=== PATIENT | female | born 1995 | race American Indian/Alaskan Native ===

== ENCOUNTER 2017-06-08 17:29 | Emergency (ER) | payer MEDICAID ==
--- NOTE | 2017-06-08 17:33 | EDM.PDOC ---
ED HPI GENERAL MEDICAL PROBLEM - General Chief Complaint: Neuro Symptoms/Deficits Stated Complaint: RT SIDE OF FACE IS NUMB, [id number] Time Seen by Provider: 06/08/17 17:40 Source of Information: Reports: Patient, RN, RN Notes Reviewed - History of Present Illness INITIAL COMMENTS - FREE TEXT/NARRATIVE: Complaining of waking today with posterior and right sided headache. During the day the right face felt slightly tingly then developed right facial droop. speech is unaffected. She states the right eye will not fully close. Onset: Today Location: Reports: Head Quality: Reports: Ache Severity: Severe Improves with: Reports: None Worsens with: Reports: None Associated Symptoms: Reports: No Other Symptoms Headache Pain Score (Numeric/FACES): 4 - Related Data Allergies Allergy/AdvReac Type Severity Reaction Status Date / Time amoxicillin Allergy Hives Verified 06/08/17 17:45 Home Meds: Home Meds . [No Known Home Meds] 06/08/17 [History] ED ROS GENERAL - Review of Systems Review Of Systems: ROS reveals no pertinent complaints other than HPI. ED EXAM, NEURO - Physical Exam Exam: See Below Exam Limited By: No Limitations General Appearance: Alert, WD/WN, No Apparent Distress Eye Exam: Bilateral Eye: Normal Inspection Ears: Normal External Exam, Normal Canal, Hearing Grossly Normal, Normal TMs Nose: Normal Inspection, Normal Mucosa, No Blood Throat/Mouth: Normal Inspection Head Exam: Other (right facial droop involving right eye. ) Neck: Normal Inspection, Supple, Non-Tender, Full Range of Motion Respiratory/Chest: No Respiratory Distress, Lungs Clear, Normal Breath Sounds, No Accessory Muscle Use, Chest Non-Tender Cardiovascular: Normal Peripheral Pulses, Regular Rate, Rhythm, No Edema, No Gallop, No JVD, No Murmur, No Rub Neurological: Other (right face as per HEENT/otherwise normal. ) Back Exam: Normal Inspection, Full Range of Motion, NT Extremities: Normal Inspection, Normal Range of Motion, Non-Tender, No Pedal Edema, Normal Capillary Refill Psychiatric: Normal Affect, Normal Mood Skin Exam: Warm, Dry, Intact, Normal Color, No Rash Course - Vital Signs Last Recorded V/S: Last Vital Signs Temp 36.9 C 06/08/17 17:36 Pulse 91 06/08/17 17:36 Resp 12 06/08/17 17:36 BP 134/85 06/08/17 17:36 Pulse Ox 100 06/08/17 17:36 - Orders/Labs/Meds Labs: Laboratory Tests 06/08/17 06/08/17 06/08/17 Range/Units 17:43 17:43 17:57 WBC 12.6 H (5.0-10.0) 10^3/uL RBC 4.81 (4.2-5.4) 10^6/uL Hgb 13.2 (12.0-16.0) g/dL Hct 39.6 (37.0-47.0) % MCV 82.3 (80-100) fL MCH 27.4 (27.0-34.0) pg MCHC 33.3 (33.0-35.0) g/dL Plt Count 353 (150-450) 10^3/uL Neut % (Auto) 59.0 (42.2-75.2) % Lymph % (Auto) 29.0 (20.5-50.1) % Amelia % (Auto) 7.3 (2-8) % Eos % (Auto) 4.5 H (1.0-3.0) % Baso % (Auto) 0.2 (0.0-1.0) % Sodium (135-145) mmol/L Potassium (3.6-5.0) mmol/L Chloride (101-111) mmol/L Carbon Dioxide (21.0-31.0) mmol/L Anion Gap BUN (7-18) mg/dL Creatinine (0.6-1.3) mg/dL Est Cr Clr Drug Dosing mL/min Estimated GFR (MDRD) BUN/Creatinine Ratio Glucose (74-105) mg/dL Calcium (8.4-10.2) mg/dl Total Bilirubin (0.2-1.0) mg/dL AST (10-42) IU/L ALT (10-60) IU/L Alkaline Phosphatase (42-121) IU/L C-Reactive Protein (0.0-1.3) mg/dL Total Protein (6.7-8.2) g/dl Albumin (3.2-5.5) g/dl Globulin Albumin/Globulin Ratio Urine Color Yellow (YELLOW) Urine Appearance Slightly cloudy (CLEAR) Urine pH 6.0 (5.0-9.0) Ur Specific [place] 1.025 (1.005-1.030) Urine Protein Negative (NEGATIVE) Urine Glucose (UA) Negative (NEGATIVE) Urine Ketones Negative (NEGATIVE) Urine Occult Blood Negative (NEGATIVE) Urine Nitrite Negative (NEGATIVE) Urine Bilirubin Negative (NEGATIVE) Urine Urobilinogen 0.2 (0.2-1.0) mg/dL Ur Leukocyte Esterase Negative (NEGATIVE) Urine RBC 0-5 /HPF Urine WBC 0-5 (0-5/HPF) /HPF Ur Epithelial Cells Few /HPF Urine Bacteria Moderate H (0-FEW/HPF) /HPF Urine Mucus Rare /LPF Urine HCG, Qual Negative 06/08/17 06/08/17 Range/Units 17:57 17:57 WBC (5.0-10.0) 10^3/uL RBC (4.2-5.4) 10^6/uL Hgb (12.0-16.0) g/dL Hct (37.0-47.0) % MCV (80-100) fL MCH (27.0-34.0) pg MCHC (33.0-35.0) g/dL Plt Count (150-450) 10^3/uL Neut % (Auto) (42.2-75.2) % Lymph % (Auto) (20.5-50.1) % Amelia % (Auto) (2-8) % Eos % (Auto) (1.0-3.0) % Baso % (Auto) (0.0-1.0) % Sodium 138 (135-145) mmol/L Potassium 4.1 (3.6-5.0) mmol/L Chloride 102 (101-111) mmol/L Carbon Dioxide 25.0 (21.0-31.0) mmol/L Anion Gap 15.1 BUN 15 (7-18) mg/dL Creatinine 0.6 (0.6-1.3) mg/dL Est Cr Clr Drug Dosing 124.75 mL/min Estimated GFR (MDRD) > 60 BUN/Creatinine Ratio 25.00 Glucose 90 (74-105) mg/dL Calcium 9.6 (8.4-10.2) mg/dl Total Bilirubin 0.6 (0.2-1.0) mg/dL AST 33 (10-42) IU/L ALT 49 (10-60) IU/L Alkaline Phosphatase 60 (42-121) IU/L C-Reactive Protein 1.6 H (0.0-1.3) mg/dL Total Protein 8.1 (6.7-8.2) g/dl Albumin 4.5 (3.2-5.5) g/dl Globulin 3.6 Albumin/Globulin Ratio 1.25 Urine Color (YELLOW) Urine Appearance (CLEAR) Urine pH (5.0-9.0) Ur Specific [place] (1.005-1.030) Urine Protein (NEGATIVE) Urine Glucose (UA) (NEGATIVE) Urine Ketones (NEGATIVE) Urine Occult Blood (NEGATIVE) Urine Nitrite (NEGATIVE) Urine Bilirubin (NEGATIVE) Urine Urobilinogen (0.2-1.0) mg/dL Ur Leukocyte Esterase (NEGATIVE) Urine RBC /HPF Urine WBC (0-5/HPF) /HPF Ur Epithelial Cells /HPF Urine Bacteria (0-FEW/HPF) /HPF Urine Mucus /LPF Urine HCG, Qual - Radiology Interpretation Free Text/Narrative:: CT head: No acute intracranial process per rad report. Departure - Departure Time of Disposition: 18:28 Disposition: Home, Self-Care 01 Condition: Good Clinical Impression: Cruz's palsy - Discharge Information Instructions: Cruz Palsy Forms: ED Department Discharge Additional Instructions: Use Tylenol or Ibuprofen as needed for headache. Follow up in clinic in 1 week.
[2017-06-08 17:41] VITALS: BP 134/85
[2017-06-08 18:21] LABS: CHLORIDE,CL 102 mmol/L (101-111); SODIUM,NA 138 mmol/L (135-145)
== END 2017-06-08 18:45 | disposition home or self-care (01) ==
LOC: DL.ED 17:29
DX: G51.0 Bell's palsy (principal); Z88.1 Allergy status to other antibiotic agents
CPT/HCPCS: 36415; 70450; 80053; 81001; 81025; 85025; 86140; 99282; 99284

== ENCOUNTER 2018-02-24 05:33 | Emergency (ER) | payer MEDICAID ==
[2018-02-24] MEDS ORDERED: Lidocaine 1% with EPINEPHrine 1:100,000 30 ML MDV INJECT ONE (05:51)
[2018-02-24] MEDS ORDERED: Bacitracin Oint 1 GM U/D Packet TOP ONE (05:51)
[2018-02-24 05:54] VITALS: BP 127/89
--- NOTE | 2018-02-24 06:58 | EDM.PDOC ---
<Birgit Estrada - Last Filed: 02/24/18 07:11> ED HPI GENERAL MEDICAL PROBLEM - General Chief Complaint: Laceration Stated Complaint: GASH TO FOREHEAD [id number] Time Seen by Provider: 02/24/18 05:40 Source of Information: Reports: Patient History Limitations: Reports: No Limitations - History of Present Illness INITIAL COMMENTS - FREE TEXT/NARRATIVE: Skateboarding [place] park approximately 130 this am, fell forward onto forehead on concrete. Denies loss of consciousness, admits ETOH, Right ankle sore. Laceration to forehead and scalp. Location: Reports: Head, Face Quality: Reports: Ache, Throbbing Head Pain Score (Numeric/FACES): 4 - Related Data Allergies Allergy/AdvReac Type Severity Reaction Status Date / Time amoxicillin Allergy Hives Verified 06/08/17 17:45 Home Meds: Home Meds . [No Known Home Meds] 06/08/17 [History] Past Medical History - Past Health History Medical/Surgical History: Denies Medical/Surgical History Social & Family History - Tobacco Use Smoking Status *Q: Never Smoker Second Hand Smoke Exposure: Yes - Caffeine Use Caffeine Use: Reports: None - Alcohol Use Date of Last Drink: 02/23/18 - Recreational Drug Use Recreational Drug Use: No ED ROS GENERAL - Review of Systems Review Of Systems: See Below HEENT: Reports: Nose Pain (mild) Respiratory: Reports: No Symptoms Cardiovascular: Reports: No Symptoms GI/Abdominal: Reports: No Symptoms Musculoskeletal: Reports: No Symptoms Skin: Reports: Wound Neurological: Reports: Headache ED EXAM, SKIN/RASH Exam: See Below Exam Limited By: No Limitations General Appearance: Alert, Anxious Eye Exam: Bilateral Eye: EOMI, PERRL (3) Ears: Normal External Exam, Normal TMs Nose: Normal Inspection Throat/Mouth: No: Normal Lips (2mm superficial laceration to left corner) Head: Facial Swelling, Facial Tenderness, Other (contusion left temporal, laceration forehead parietal and occipital). No: Atraumatic Respiratory/Chest: No Respiratory Distress, Lungs Clear Cardiovascular: Normal Peripheral Pulses, Regular Rate, Rhythm Extremities: Normal Inspection, Normal Range of Motion Neurological: Alert, Oriented, Normal Cognition Skin: Warm, Dry, Wound/Incision Location, Skin: Head, Other Associated features: Tenderness ED SKIN PROCEDURES - Laceration/Wound Repair Middle Forehead Lac/Wound length In cm: 2.5 Appearance: Subcutaneous, Linear Distal NVT: Neuro & Vascular Intact Anesthetic Type: Local Local Anesthesia - Lidocaine (Xylocaine): 1% with EPI Local Anesthetic Volume: 3cc Skin Prep: Chlorhexidine (Hibiciens), Saline Exploration/Debridement/Repair: Wound Explored Closed with: Sutures Suture Size: other (5-0) # of Sutures: 7 Suture Type: Interrupted Suture Size: 4-0 # of Sutures: 3 Repaired with: Vicryl Sterile Dressing Applied: Nurse Tetanus Status Addressed: Yes Complications: No Mid-Anterior Head Lac/Wound length In cm: 1.5 Appearance: Stellate Distal NVT: Neuro & Vascular Intact Skin Prep: Chlorhexidine (Hibiciens), Saline Closed with: [place] (3) Tetanus Status Addressed: Yes Head Lac/Wound length In cm: 2 Appearance: Superficial Skin Prep: Chlorhexidine (Hibiciens), Saline Exploration/Debridement/Repair: Wound Explored Closed with: Damon Course - Vital Signs Last Recorded V/S: Last Vital Signs Temp 36.6 C 02/24/18 05:37 Pulse 89 02/24/18 05:37 Resp 18 02/24/18 05:37 BP 127/89 02/24/18 05:37 Pulse Ox 98 02/24/18 05:37 - Orders/Labs/Meds Labs: Laboratory Tests 02/24/18 Range/Units 06:46 Urine HCG, Qual Negative Meds: Medications Discontinued Medications Generic Name Dose Route Start Last Admin Trade Name Vadim PRN Reason Stop Dose Admin Bacitracin 1 dose 02/24/18 05:51 02/24/18 06:00 Bacitracin Oint 1 Gm TOP 02/24/18 05:52 1 dose ONETIME ONE Administration Lidocaine/Epinephrine 30 ml 02/24/18 05:51 02/24/18 05:59 Xylocaine 1% With Epinephrine 1:100,000 INJECT 02/24/18 05:52 1 ml ONETIME ONE Administration Departure - Departure Disposition: Home, Self-Care 01 Condition: Good Clinical Impression: Contusion, Broken skin - Discharge Information Instructions: Head Injury, Adult, Laceration Care, Adult, [id number], Stitches, [place], or Adhesive Wound Closure, [id number] Forms: ED Department Discharge Additional Instructions: keep areas clean and dry 24 hours then may shower sutures and damon out 7-10 days, call to make appointment monitor for infection, if increased swelling, redness or drainage follow up tylenol every 4 hours as needed for discomfort head injury instruction cold pack to forehead and face. antibiotic ointment to forehead laceration twice daily Based on CT results: Prescription for Keflex (500 mg) #30 to take 1 by mouth 3 times per day for 10 days due to sinusitis Care Plan Goals: Reviewed examination, treatment and CT results and I agree with treatment. An antibiotic was added due to CT demonstrating Sinusitis. <Uche Kumar - Last Filed: 02/24/18 07:51> Departure - Departure Time of Disposition: 07:55
== END 2018-02-24 08:01 | disposition home or self-care (01) ==
LOC: DL.ED 05:33
DX: S01.81XA Laceration without foreign body of other part of head, initial encounter (principal); S01.01XA Laceration without foreign body of scalp, initial encounter; Z88.1 Allergy status to other antibiotic agents; Z77.22 Contact with and (suspected) exposure to environmental tobacco smoke (acute) (chronic); W22.8XXA Striking against or struck by other objects, initial encounter; Y93.51 Activity, roller skating (inline) and skateboarding
CPT/HCPCS: 12001; 12002; 12011; 70450; 70486; 72125; 81025; 99284

== ENCOUNTER 2019-03-06 14:19 | Inpatient (IN) | payer MEDICAID ==
[2019-03-16] MEDS ORDERED: Acetaminophen 325 MG Tab PO PRN (06:00)
[2019-03-16] MEDS ORDERED: Sodium Chloride 0.9% 10 ML Syringe FLUSH PRN ×2 (08:00→22:02)
[2019-03-16] MEDS ORDERED: Misoprostol 25 MCG (1/4 of 100 MCG) Tab VAG PRN (08:00)
[2019-03-16] MEDS ORDERED: Misoprostol 50 MCG (1/2 of 100 MCG) Tab VAG PRN (08:52)
[2019-03-16] MEDS: Lactated Ringers 1,000 ML IV SCH ×3 (13:26→17:59)
[2019-03-16] MEDS: Oxytocin/Normal Saline 30 UNIT/500 ML BAG IV SCH ×2 (13:26→23:22)
--- NOTE | 2019-03-16 14:40 | HP ---
CHIEF COMPLAINT: Induction of labor. HISTORY OF PRESENT ILLNESS: The patient is a 23-year-old, 1, para 0 female, presenting at 41 weeks 2 days' gestation for induction of labor. The patient reports no concerns. The patient reports active movement. The patient denies any contractions, vaginal bleeding, vaginal discharge, or leakage of fluid. The patient does report new-onset lower extremity swelling within the last 3 weeks bilaterally. The patient denies any lower extremity pain or calf tenderness. The patient has no other concerns. PAST MEDICAL HISTORY: 1. The patient endorses positive UDS of THC on 08/09/2018. 2. Anemia of . 3. HSIL with colposcopy in early . 4. History of GERD in , treated with ranitidine. 5. Tobacco use in early , has since quit. 6. Eczema. PAST SURGICAL HISTORY: Tonsillectomy with adenoidectomy as a small child, no current complications. FAMILY HISTORY: History of diabetes and hypertension on both sides of the family. The patient's maternal grandfather has renal failure, undergoing dialysis. SOCIAL HISTORY: The patient resides in [place] with maternal grandfather and 2 younger brothers, age 17 and 19. The patient works at [employer] in [place], [place]. The father of baby is Ezio Magdaleno. He is not involved. Father of the baby is noted to have a penicillin allergy, but has no known other medical conditions. Does suffer from alcohol abuse. MEDICATIONS IN : 1. vitamin. 2. Ranitidine. 3. Iron supplementation 325 mg once daily. ALLERGIES: Amoxicillin. REVIEW OF SYSTEMS: Significant review of systems noted in HPI. Denies fever, chills, headache, blurred vision, chest pain, shortness of breath, abdominal pain, or new rashes. OBJECTIVE: Vital Signs: Temperature 99.1, HR 90 bpm, BP 108/61, RR 16 breaths per minute. General: Alert, active, in no acute distress. HEENT: Grossly normal. Pulmonary: Lungs are clear to auscultation bilaterally. No increased work of breathing. Cardiovascular: Regular rate and rhythm. No murmurs noted. Abdomen: Soft, nontender, gravid uterus palpated 22 cm above umbilicus. Extremities: Moderate lower extremity swelling bilaterally. No pitting noted. No tenderness to calf palpation bilaterally. Neurologic: Grossly normal. Cervical: Cervix was noted to be 5 cm dilated, 80% effaced, -2 station, very posterior. LABORATORY DATA: Recent lab results: WBC 14.2, RBC 4.34, hemoglobin 11.9, hematocrit 35.7, platelet count 340. Toxicology: Urine opiate screen positive. Urine methamphetamine screen positive, all other results negative including marijuana/THC. Confirmatory test pending. ASSESSMENT/PLAN: The patient is a 23-year-old, G1, P0 female, presenting at 41 weeks 2 days' gestation for induction of labor with Cytotec. Cytotec was placed around 9 a.m. and the patient is doing well. Anticipating routine progression of labor. 1--23yo NA primigravida @ 27w6o--[id number] for induction due to post dates . Start with Cytotec as discussed, considering possible repeat Cytotec , AROM, pitocin infusion, internal monitoring, etc as reviewed if needed for adequate labor pattern. 2--blood type O+ 3--GBS positive with Amoxicillin allergy and resistance to Clindamycin--will use Vancomycin for prophylaxis in labor 1g Q 12 hours 4--maternal anemia, improved. Hgb 11.9 on admit 5--positive UDS on admit, does not match clinical hx, will get confirmatory testing. also--known use of ranitidine for GERD, possible false positive 6--Rubella immune 7--HGSIL on pap/colpo--will need follow up colpo likely with biopsies with [address] Barboza as discussed. 8--GERD, on ranitidine and other OTC agents. 9-- first trimester tobacco use. The patient was seen and evaluated today by myself and Dr. Nayeli Urena. Assessment and plan is under advisement of Dr. Urena. -Nasra Maxwell, MS-III Nayeli Urena MD [facility] /[id number] [id number]
[2019-03-16] MEDS ORDERED: Lidocaine 1% 30 ML SDV INJECT ONE (15:50)
[2019-03-16] MEDS ORDERED: Misoprostol 400 MCG (4 X 100 MCG TAB) RECTAL PRN ×2 (15:51→22:02)
[2019-03-16] MEDS ORDERED: Methylergonovine 0.2 MG/1 ML Amp IM PRN (15:51)
[2019-03-16] MEDS ORDERED: Carboprost Tromethamine 250 MCG/1 ML Amp IM PRN ×2 (15:52→22:02)
[2019-03-16] MEDS ORDERED: Ondansetron 4 MG/2 ML SDV ONE (17:04)
[2019-03-16] MEDS ORDERED: EPINEPHrine 1 MG/ML SDV ONE (17:19)
[2019-03-16] MEDS ORDERED: fentaNYL 100 MCG/2 ML SDV ONE (17:19)
[2019-03-16] MEDS ORDERED: Bupivacaine 0.75%/D5W 2 ML Amp ONE (17:24)
--- NOTE | 2019-03-16 18:32 | PCM.PRNOTE ---
- Free Text/Narrative Note: Requested to provide analgesia to full term patient in severe pain. Upon entering the room, patient is sitting on edge of bed complaining of severe abdominal/pelvic pain and discomfort. Procedure was discussed with patient including adverse outcomes and expectations. Pt consented to analgesia, SAB/ IT. Pt placed into a proper sitting position. Landmarks for SAB/IT were identified and marked. Hands were washed and appropriate PPE was applied. Back was prepped with betadine x3. A sterile, transparent, fenestrated drape was applied. Excess betadine was removed. Using 3 mL of a 1% lidocaine solution , a skin wheel was placed at the L2/L3 interspace. A 24 ga (4 inch) Pencan spinal needle was inserted until positive for CSF. Negative for heme or paresthesias. Injected fentanyl 30 mcg, sufentanil 25 mcg, and 6.75 mg of a 0.75% bupivacaine solution with an epi wash. Within 3-5 of IT, patient developed bradycardia while normotensive. Pt was placed on O2 via NRB and additional fluid bolus was given. bradycardia persisted so we began turning the mother from side to side looking for the best position for the fetus. heart rate continued to be from a low of 50s to 90s for several minutes. It was difficult to obtain an accurate FHR due to the mothers increased body habitus. Dr. Urena was called and arrived quickly. She placed internal monitors and the heart rate was in the 130s-140s. Patient BP never got below 103 systolic or 46 diastolic. It was difficult to assess the BP as the cuff was on the up arm at times and the down arm at other times. Irregardless, I proceeded to give the pt Ephedrine 10mg IVP then 5 minutes later I gave another 5 mg IVP. The mother did not have any s/s of hypotension but I wanted to do everything I could to help increase heart rate. Both times the mother had little response to HR or BP but by this time, the baby was rebounding and stabilizing with heart rates into 130-140. Will continue to monitor. Procedure Date & Time: 03/16/19 [id number]
--- NOTE | 2019-03-16 19:33 | PCM.SN ---
- Free Text/Narrative Note: Non-Stress Test: Reason: Labor Admission Report: - Baseline FHR 135 - Reactive -TOCO: contractions 1-3 minutes apart Interpretation: Category 1 strip NST interpretation by myself and Dr. Nayeli Urena and under advisement of Dr. Urena. -Nasra Maxwell, MS-III
[2019-03-16] MEDS ORDERED: Tranexamic Acid 1,000 MG in Sodium Chloride 0.9% 100 ML IV PRN (22:02)
[2019-03-16] MEDS ORDERED: Oxytocin 10 Units/1 ML SDV IM PRN (22:02)
[2019-03-16] MEDS ORDERED: Zolpidem 5 MG Tab PO PRN (22:02)
[2019-03-16] MEDS ORDERED: Benzocaine/Menthol 20%-0.5% Spray 56 GM Canister TOP PRN (22:02)
[2019-03-16] MEDS ORDERED: Simethicone 80 MG Tab.Chew PO PRN (22:02)
--- NOTE | 2019-03-16 22:10 | PCM.DEL ---
<Nasra Maxwell - Last Filed: 03/17/19 10:03> L & D Note - General Info Date of Service: 03/16/19 - Delivery Note Labor: Augmented by ARM, Induced by Oxytocin Cervical Ripening Method: Misoprostil, Oxytocin Delivery Outcome: Livebirth Infant Delivery Method: Spontaneous Vaginal Delivery-Single Delivery Mode: Vacuum Extraction Presentation: Right Occiput Anterior (JOHANNA) Nuchal Cord: None Prep: Povidone-Iodine (Betadine Anesthesia Type: Intrathecal Laceration: None Cord: 3 Vessels Estimated Blood Loss: 400 Resuscitation Needed: No [place]: Bulb Syringe, Stimulated, [place] Used Score 1 min: 8 Score 5 min: 9 Second Stage Interventions: Reports: Encouragement Given, Laboring Down, Pushing Effectively, Pushing, Pulls Own Legs Back, Pushing, Stirrups/Leg Supports Delivery Comments (Free Text/Narrative):: Patient is 23yo NA primigravida @ 41w2d who presented for induction of labor due to post dates . First cytotec was given at 0915. Cervical change progressed. AROM at 1659 with clear fluid, patient was 7cm, 90% effaced, -2 station. Intrathecal placed at 1733. Patient was complete at 1752 and was allowed to labor down. Patient was checked at 2020 with subsequent initiation of pushing. Descent progressed and vacuum was placed at +4 station for shortening of 2nd stage. Vacuum was placed and with one contraction head presented in the JOHANNA position with right shoulder and hand near face. Delivery of body subsequently followed. Meconium was noted at . Baby was bulb suctioned, dried and stimulated, then placed on mother's chest. Delivery of placenta occurred at 2140 in mature intact condition with 3 vessel cord and diffuse calcifications. Small first degree perineal laceration was hemostatic and did not necessitate repair. Baby was allowed to room in with mother for initiation of and bonding. Induction Criteria - Avina Score Avina Score Dilation: > 5 cm Avina Score Effacement: >80% Avina Score 's Station: -2 Avina Score Consistency: Soft Avina Score Cervix Position: Posterior Avina Score Total: 9 Avina Score Presenting Part: Reports: Cephalic - Induction Gestational Age >/= 39 wks: Yes Estimated Pelvis: Reports: Adequate Reassuring Monitoring Strip: Yes Absence of Tachy Systole: Yes - Augmentation Estimated Pelvis: Reports: Adequate Weight Estimated:: Reports: AGA Reassuring Monitoring Strip: Yes Absence of Tachy Systole: Yes Vacuum Extractor Progress Note - Alternative Labor Strategies Considered Strategies Considered:: Reports: Contraction Intensity Adequate, Empty Bladder, Rest Indications Considered:: Reports: Yes Indications:: Reports: Shortening of 2nd Stage for Maternal Benefit Time Out:: Reports: Yes - Patient Prepared Patient Prepared:: Reports: Yes Informed Consent:: Reports: Yes Risks: Reports: Yes Risks Include:: Reports: Laceration, Shoulder Dystocia, Maternal Injury Anesthesia/Analgesia Adequate:: Reports: Yes - Probability of Success High Probability of Success:: Reports: Yes Weight Estimated:: Reports: AGA Patient Diabetic:: Reports: No Pelvis Adequate:: Reports: Yes Position:: JOHANNA Asynclitic:: Reports: No Station:: -4 Comments:: Vacuum was placed and utilized for 1 contraction with subsequent delivery of term male infant. - Application Time Maximum Application Time & Number of Pop-Offs Predetermined:: Reports: Yes Total Application Time (min): *max=20min: 1 Number of Times Cup Disengaged:: 0 Type of Vacuum Used:: Reports: Cup: Cruz type Vacuum Extraction: Successful - Exit Strategy Exit strategy available:: Reports: Yes and resuscitation teams readily available:: Reports: Yes - General Info Date of Service: 03/16/19 Functional Status: Reports: Pain Controlled (Intrathecal placed at 7cm dilation) , Other - Review of Systems General: Reports: No Symptoms HEENT: Denies: Eye Pain, Headaches, Sinus Congestion, Sore Throat Pulmonary: Denies: Shortness of Breath, Cough Cardiovascular: Reports: Edema (bilateral lower extremities). Denies: Chest Pain, Palpitations, Lightheadedness Gastrointestinal: Denies: Abdominal Pain, Nausea, Vomiting Genitourinary: Denies: Dysuria, Frequency, Burning Musculoskeletal: Reports: No Symptoms Skin: Reports: No Symptoms Neurological: Reports: Weakness. Denies: Dizziness, Headache - Patient Data Vitals - Most Recent: Last Vital Signs Temp 98.6 F 03/16/19 19:00 Pulse 107 H 03/16/19 19:15 Resp 14 03/16/19 19:15 BP 144/70 H 03/16/19 19:15 Pulse Ox 99 03/16/19 19:15 Weight - Most Recent: 269 lb I&O - Last 24 Hours: Intake & Output 03/16/19 03/16/19 03/16/19 06:59 14:59 22:59 Intake Total 1270 1999 Balance 1270 1999 Lab Results Last 24 Hours: Laboratory Results - last 24 hr 03/16/19 03/16/19 03/16/19 Range/Units 08:30 08:30 08:35 WBC 14.2 H (5.0-10.0) 10^3/uL RBC 4.34 (4.2-5.4) 10^6/uL Hgb 11.9 L (12.0-16.0) g/dL Hct 35.7 L (37.0-47.0) % MCV 82.3 (80-100) fL MCH 27.4 (27.0-34.0) pg MCHC 33.3 (33.0-35.0) g/dL Plt Count 340 (150-450) 10^3/uL Urine Opiates Screen Positive H (NEGATIVE) Ur Oxycodone Screen Negative (NEGATIVE) Urine Methadone Screen Negative (NEGATIVE) Ur Barbiturates Screen Negative (NEGATIVE) U Tricyclic Antidepress Negative (NEGATIVE) Ur Phencyclidine Scrn Negative (NEGATIVE) Ur Amphetamine Screen Negative (NEGATIVE) U Methamphetamines Scrn Positive H (NEGATIVE) Urine MDMA Screen Negative (NEGATIVE) U Benzodiazepines Scrn Negative (NEGATIVE) Urine Cocaine Screen Negative (NEGATIVE) U Marijuana (THC) Screen Negative (NEGATIVE) Blood Type O POSITIVE Gel Antibody Screen Negative Med Orders - Current: Current Medications Acetaminophen (Tylenol) 650 mg PO Q4HR PRN PRN Reason: Pain (mild 1-3)/ Fever Carboprost Tromethamine (Hemabate Ds) 250 mcg IM ONETIME PRN PRN Reason: Bleeding Lactated Ringer's (Ringers, Lactated) 1,000 mls @ 500 mls/hr IV ASDIRECTED ALFREDA Last Admin: 03/16/19 17:59 Dose: 125 mls/hr Oxytocin/Sodium Chloride (Pitocin In Ns 30 Unit/500 Ml) 30 unit in 500 mls @ 2 mls/hr IV TITRATE ALFREDA; Protocol Last Titration: 03/16/19 17:36 Dose: 0 munits/min, 0 mls/hr Methylergonovine Maleate (Methergine) 0.2 mg IM Q4H PRN PRN Reason: Bleeding Misoprostol (Cytotec) 50 mcg VAG Q4H PRN PRN Reason: cervical ripening Last Admin: 03/16/19 09:08 Dose: 50 mcg Misoprostol (Cytotec) 800 mcg RECTAL ONETIME PRN PRN Reason: Bleeding Sodium Chloride (Saline Flush) 10 ml FLUSH ASDIRECTED PRN PRN Reason: Keep Vein Open Discontinued Medications Bupivacaine HCl/Dextrose (Marcaine 0.75% Spinal) Confirm Administered Dose 2 ml .ROUTE .STK-MED ONE Stop: 03/16/19 17:25 Last Admin: 03/16/19 18:23 Dose: Not Given Epinephrine HCl (Adrenalin) Confirm Administered Dose 1 mg .ROUTE .STK-MED ONE Stop: 03/16/19 17:20 Last Admin: 03/16/19 18:23 Dose: Not Given Fentanyl (Sublimaze) Confirm Administered Dose 100 mcg .ROUTE .STK-MED ONE Stop: 03/16/19 17:20 Last Admin: 03/16/19 18:23 Dose: Not Given Vancomycin HCl 1 gm/ Sodium (Chloride) 250 mls @ 167 mls/hr IV Q12H ALFREDA Last Admin: 03/16/19 19:24 Dose: 167 mls/hr Lidocaine HCl (Xylocaine-Mpf 1%) 30 ml INJECT ONETIME ONE Stop: 03/16/19 15:51 Ondansetron HCl (Zofran) Confirm Administered Dose 4 mg .ROUTE .STK-MED ONE Stop: 03/16/19 17:05 Last Admin: 03/16/19 17:08 Dose: 4 mg Sufentanil Citrate (Sufenta) Confirm Administered Dose 50 mcg .ROUTE .STK-MED ONE Stop: 03/16/19 17:20 Last Admin: 03/16/19 18:23 Dose: Not Given - Exam General: Alert, Oriented, Cooperative HEENT: Pupils Equal, EOMI Neck: Supple Lungs: Clear to Auscultation, Normal Respiratory Effort Cardiovascular: Regular Rate, Regular Rhythm GI/Abdominal Exam: Soft, Non-Tender (Gravid Uterus 22cm above umbilicus), Other (Female) Exam: Normal External Exam, Cervical Dilatation, Heart Tones, Vaginal Discharge. No: Vaginal Bleeding Back Exam: Normal Inspection Extremities: Pedal Edema Skin: Warm, Dry, Intact Neurological: No New Focal Deficit - Problem List & Annotations (1) Vacuum extraction, delivered, current hospitalization SNOMED Code(s): 859819578 Code(s): O66.5 - ATTEMPTED APPLICATION OF VACUUM EXTRACTOR AND FORCEPS Status: Acute Current Visit: Yes - Problem List Review Problem List Initiated/Reviewed/Updated: Yes - My Orders Last 24 Hours: My Active Orders 03/16/19 21:56 Resuscitation Status Routine 03/16/19 22:02 Notify Provider Vital Signs OB [RC] ASDIRECTED Up ad Carol [RC] ASDIRECTED Vital Signs [RC] PFP Acetaminophen [Tylenol] 650 mg PO Q6H PRN Benzocaine/Menthol [Dermoplast Pain Relief [place]] See Dose Instructions TOP Q4H PRN Carboprost Tromethamine [Hemabate DS] 250 mcg IM ASDIRECTED PRN Docusate Sodium [Colace] 100 mg PO BID PRN Ibuprofen [Motrin] 800 mg PO Q8H PRN Oxytocin [Pitocin] 10 unit IM ONETIME PRN Simethicone 80 mg PO Q4H PRN Sodium Chloride 0.9% [Saline Flush] 10 ml FLUSH ASDIRECTED PRN Tranexamic Acid [Cyklokapron] 1,000 mg Sodium Chloride 0.9% [Normal Saline] 100 ml IV ONETIME Zolpidem [Ambien] 5 mg PO BEDTIME PRN miSOPROStol [Cytotec] 800 mcg RECTAL ONETIME PRN Assess Lochia [WOMSER] Per Unit Routine Assess Uterine Involution [WOMSER] Per Unit Routine Breast Pump [WOMSER] Per Unit Routine Ice Therapy [OM.PC] Per Unit Routine Perineal Care [OM.PC] Per Unit Routine Saline Lock Insert [OM.PC] Urgent Sitz Bath [OM.PC] Per Unit Routine 03/17/19 09:00 Vit with Ca/FA/Iron [ Plus Iron] 1 each PO DAILY 03/18/19 06:00 CBC W/O DIFF,HEMOGRAM [HEME] Routine - Plan Plan:: Assessment/Plan: 1. 23 yo NA primigravida @ 41w2d -- S/P Vacuum assisted vaginal delivery of post term male . --Initiate routine cares, rooming in as much as possible for initiation of bonding and . -- Patient presented for induction due to post dates . Started with Cytotec as discussed, considered possible repeat Cytotec, AROM, Pitocin infusion, internal monitoring, etc as reviewed if needed for adequate labor pattern. 2. Blood type O+ 3. GBS positive with Amoxicillin allergy and resistance to Clindamycin -- Received 2 doses of Vancomycin for prophylaxis in labor 1g Q 12 hours. 4. Maternal anemia, improved. Hgb 11.9 on admit 5. Positive UDS on admit, does not match clinical hx, will get confirmatory testing. Also--known use of ranitidine for GERD, possible false positive -- Confirmatory test pending. 6. 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 Barboza as discussed. 8. GERD, on ranitidine and other OTC agents. 9. First trimester tobacco use. Delivery was completed by myself and Dr. Nayeli Urena. Assessment and plan is under advisement of Dr. Nayeli Urena. -Nasra Maxwell, MS-III <Nayeli Urena M - Last Filed: 03/18/19 13:32> L & D Note - General Info Date of Service: 03/16/19 Vacuum Extractor Progress Note - Probability of Success Weight Estimated:: Reports: LGA - Patient Data Vitals - Most Recent: Last Vital Signs Temp 98.6 F 03/18/19 07:39 Pulse 105 H 03/18/19 07:39 Resp 16 03/18/19 07:39 BP 118/75 03/18/19 07:39 Pulse Ox 99 03/18/19 07:39 Lab Results Last 24 Hours: Laboratory Results - last 24 hr 03/18/19 Range/Units 06:23 WBC 13.8 H (5.0-10.0) 10^3/uL RBC 3.72 L (4.2-5.4) 10^6/uL Hgb 10.3 L D (12.0-16.0) g/dL Hct 31.5 L (37.0-47.0) % MCV 84.7 (80-100) fL MCH 27.7 (27.0-34.0) pg MCHC 32.7 L (33.0-35.0) g/dL Plt Count 295 (150-450) 10^3/uL Med Orders - Current: Current Medications Acetaminophen (Tylenol) 650 mg PO Q6H PRN PRN Reason: mild pain or fever Last Admin: 03/18/19 08:48 Dose: 650 mg Benzocaine/Menthol (Dermoplast Pain Relief [place]) 0 gm TOP Q4H PRN PRN Reason: Perineal comfort measures Carboprost Tromethamine (Hemabate Ds) 250 mcg IM ONETIME PRN PRN Reason: Bleeding Carboprost Tromethamine (Hemabate Ds) 250 mcg IM ASDIRECTED PRN PRN Reason: Excessive vaginal bleeding Docusate Sodium (Colace) 100 mg PO BID PRN PRN Reason: Constipation Last Admin: 03/18/19 08:48 Dose: 100 mg Lactated Ringer's (Ringers, Lactated) 1,000 mls @ 500 mls/hr IV ASDIRECTED ALFREDA Last Admin: 03/16/19 17:59 Dose: 125 mls/hr Oxytocin/Sodium Chloride (Pitocin In Ns 30 Unit/500 Ml) 30 unit in 500 mls @ 2 mls/hr IV TITRATE ALFREDA; Protocol Last Titration: 03/17/19 00:50 Dose: 0 mls/hr Tranexamic Acid 1,000 mg/ (Sodium Chloride) 110 mls @ 660 mls/hr IV ONETIME PRN PRN Reason: Bleeding Ibuprofen (Motrin) 800 mg PO Q8H PRN PRN Reason: Mild Pain or Fever Last Admin: 03/18/19 05:51 Dose: 800 mg Methylergonovine Maleate (Methergine) 0.2 mg IM Q4H PRN PRN Reason: Bleeding Misoprostol (Cytotec) 50 mcg VAG Q4H PRN PRN Reason: cervical ripening Last Admin: 03/16/19 09:08 Dose: 50 mcg Misoprostol (Cytotec) 800 mcg RECTAL ONETIME PRN PRN Reason: Hemorrhage Oxytocin (Pitocin) 10 unit IM ONETIME PRN PRN Reason: Bleeding Prenat Multivit/[place]/Iron/Folic Ac ( Plus Iron) 1 each PO DAILY ALFREDA Last Admin: 03/18/19 08:48 Dose: 1 each Simethicone (Simethicone) 80 mg PO Q4H PRN PRN Reason: Gas Sodium Chloride (Saline Flush) 10 ml FLUSH ASDIRECTED PRN PRN Reason: Keep Vein Open Sodium Chloride (Saline Flush) 10 ml FLUSH ASDIRECTED PRN PRN Reason: Keep Vein Open Zolpidem Tartrate (Ambien) 5 mg PO BEDTIME PRN PRN Reason: Insomnia Discontinued Medications Acetaminophen (Tylenol) 650 mg PO Q4HR PRN PRN Reason: Pain (mild 1-3)/ Fever Bupivacaine HCl/Dextrose (Marcaine 0.75% Spinal) Confirm Administered Dose 2 ml .ROUTE .STK-MED ONE Stop: 03/16/19 17:25 Last Admin: 03/16/19 18:23 Dose: Not Given Epinephrine HCl (Adrenalin) Confirm Administered Dose 1 mg .ROUTE .STK-MED ONE Stop: 03/16/19 17:20 Last Admin: 03/16/19 18:23 Dose: Not Given Fentanyl (Sublimaze) Confirm Administered Dose 100 mcg .ROUTE .STK-MED ONE Stop: 03/16/19 17:20 Last Admin: 03/16/19 18:23 Dose: Not Given Vancomycin HCl 1 gm/ Sodium (Chloride) 250 mls @ 167 mls/hr IV Q12H ALFREDA Last Admin: 03/16/19 19:24 Dose: 167 mls/hr Lidocaine HCl (Xylocaine-Mpf 1%) 30 ml INJECT ONETIME ONE Stop: 03/16/19 15:51 Last Admin: 03/17/19 01:53 Dose: Not Given Misoprostol (Cytotec) 800 mcg RECTAL ONETIME PRN PRN Reason: Bleeding Ondansetron HCl (Zofran) Confirm Administered Dose 4 mg .ROUTE .STK-MED ONE Stop: 03/16/19 17:05 Last Admin: 03/16/19 17:08 Dose: 4 mg Sufentanil Citrate (Sufenta) Confirm Administered Dose 50 mcg .ROUTE .STK-MED ONE Stop: 03/16/19 17:20 Last Admin: 03/16/19 18:23 Dose: Not Given
[2019-03-16] MEDS: Docusate Sodium 100 MG Cap PO PRN (23:55)
[2019-03-16] MEDS: Ibuprofen 800 MG Tab PO PRN (23:55)
[2019-03-17] MEDS: Prenatal Multivitamin with Calcium/Folic Acid/Iron Tab PO SCH (08:36)
[2019-03-17] MEDS: Ibuprofen 800 MG Tab PO PRN ×2 (08:36→19:22)
[2019-03-17] MEDS: Docusate Sodium 100 MG Cap PO PRN ×2 (08:36→19:22)
--- NOTE | 2019-03-17 09:37 | PCM.PNPP ---
- General Info Date of Service: 03/17/19 Subjective Update: Patient is 23 yo NA primigravida now [id number] hospital day #1 S/P vacuum assisted vaginal delivery of post term macrosomic male at 41w2d gestation. Patient doing well. Ambulating, tolerating general diet, , urinating, and passing flatus. No concerns at this time. Reports mild bilateral ankle swelling and general soreness. Denies fever, chills, headache, dizziness, lightheadedness, chest pain, shortness of breath, abdominal pain. Functional Status: Reports: Pain Controlled, Tolerating Diet, Ambulating, Urinating - General Info Date of Service: 03/17/19 - Patient Data Vital Signs - Most Recent: Last Vital Signs Temp 98.6 F 03/16/19 19:00 Pulse 105 H 03/16/19 23:50 Resp 16 03/16/19 23:50 BP 122/56 L 03/16/19 23:50 Pulse Ox 100 03/16/19 19:50 Weight - Most Recent: 269 lb I&O - Last 24 Hours: Intake & Output 03/16/19 03/17/19 03/17/19 22:59 06:59 14:59 Intake Total 2000 850 Output Total 250 500 Balance 1750 350 Lab Results - Last 24 Hours: Laboratory Results - last 24 hr 03/16/19 Range/Units 08:30 Blood Type O POSITIVE Gel Antibody Screen Negative Med Orders - Current: Current Medications Acetaminophen (Tylenol) 650 mg PO Q6H PRN PRN Reason: mild pain or fever Benzocaine/Menthol (Dermoplast Pain Relief [place]) 0 gm TOP Q4H PRN PRN Reason: Perineal comfort measures Carboprost Tromethamine (Hemabate Ds) 250 mcg IM ONETIME PRN PRN Reason: Bleeding Carboprost Tromethamine (Hemabate Ds) 250 mcg IM ASDIRECTED PRN PRN Reason: Excessive vaginal bleeding Docusate Sodium (Colace) 100 mg PO BID PRN PRN Reason: Constipation Last Admin: 03/17/19 08:36 Dose: 100 mg Lactated Ringer's (Ringers, Lactated) 1,000 mls @ 500 mls/hr IV ASDIRECTED ALFREDA Last Admin: 03/16/19 17:59 Dose: 125 mls/hr Oxytocin/Sodium Chloride (Pitocin In Ns 30 Unit/500 Ml) 30 unit in 500 mls @ 2 mls/hr IV TITRATE ALFREDA; Protocol Last Titration: 03/17/19 00:50 Dose: 0 mls/hr Tranexamic Acid 1,000 mg/ (Sodium Chloride) 110 mls @ 660 mls/hr IV ONETIME PRN PRN Reason: Bleeding Ibuprofen (Motrin) 800 mg PO Q8H PRN PRN Reason: Mild Pain or Fever Last Admin: 03/17/19 08:36 Dose: 800 mg Methylergonovine Maleate (Methergine) 0.2 mg IM Q4H PRN PRN Reason: Bleeding Misoprostol (Cytotec) 50 mcg VAG Q4H PRN PRN Reason: cervical ripening Last Admin: 03/16/19 09:08 Dose: 50 mcg Misoprostol (Cytotec) 800 mcg RECTAL ONETIME PRN PRN Reason: Hemorrhage Oxytocin (Pitocin) 10 unit IM ONETIME PRN PRN Reason: Bleeding Prenat Multivit/[place]/Iron/Folic Ac ( Plus Iron) 1 each PO DAILY [facility] Last Admin: 03/17/19 08:36 Dose: 1 each Simethicone (Simethicone) 80 mg PO Q4H PRN PRN Reason: Gas Sodium Chloride (Saline Flush) 10 ml FLUSH ASDIRECTED PRN PRN Reason: Keep Vein Open Sodium Chloride (Saline Flush) 10 ml FLUSH ASDIRECTED PRN PRN Reason: Keep Vein Open Zolpidem Tartrate (Ambien) 5 mg PO BEDTIME PRN PRN Reason: Insomnia Discontinued Medications Acetaminophen (Tylenol) 650 mg PO Q4HR PRN PRN Reason: Pain (mild 1-3)/ Fever Bupivacaine HCl/Dextrose (Marcaine 0.75% Spinal) Confirm Administered Dose 2 ml .ROUTE .STK-MED ONE Stop: 03/16/19 17:25 Last Admin: 03/16/19 18:23 Dose: Not Given Epinephrine HCl (Adrenalin) Confirm Administered Dose 1 mg .ROUTE .STK-MED ONE Stop: 03/16/19 17:20 Last Admin: 03/16/19 18:23 Dose: Not Given Fentanyl (Sublimaze) Confirm Administered Dose 100 mcg .ROUTE .STK-MED ONE Stop: 03/16/19 17:20 Last Admin: 03/16/19 18:23 Dose: Not Given Vancomycin HCl 1 gm/ Sodium (Chloride) 250 mls @ 167 mls/hr IV Q12H ALFREDA Last Admin: 03/16/19 19:24 Dose: 167 mls/hr Lidocaine HCl (Xylocaine-Mpf 1%) 30 ml INJECT ONETIME ONE Stop: 03/16/19 15:51 Last Admin: 03/17/19 01:53 Dose: Not Given Misoprostol (Cytotec) 800 mcg RECTAL ONETIME PRN PRN Reason: Bleeding Ondansetron HCl (Zofran) Confirm Administered Dose 4 mg .ROUTE .STK-MED ONE Stop: 03/16/19 17:05 Last Admin: 03/16/19 17:08 Dose: 4 mg Sufentanil Citrate (Sufenta) Confirm Administered Dose 50 mcg .ROUTE .STK-MED ONE Stop: 03/16/19 17:20 Last Admin: 03/16/19 18:23 Dose: Not Given - Infant Interaction Infant Disposition, : at Bedside Interaction: Holding Infant Feeding: Continues to Breastfeed Support Person: Mother - Recovery Exam Fundal Tone: Firm Fundal Level: At Umbilicus Fundal Placement: Midline Lochia Amount: Small Lochia Color: Rubra/Red Perineum Description: Intact, Minimal Bruising/Swelling Episiotomy/Laceration: None Bladder Status: Nonpalpable, Voiding Urinary Elimination: Voided - Exam General: Alert, Oriented, Cooperative, No Acute Distress HEENT: EOMI, Mucous Membr. Moist/[place] Neck: Supple Lungs: Clear to Auscultation, Normal Respiratory Effort. No: Crackles Cardiovascular: Regular Rate, Regular Rhythm, No Murmurs GI/Abdominal Exam: Normal Bowel Sounds, Soft, Non-Tender, Other (Uterus palpated 3cm below umbilicus) Extremities: Normal Inspection, Normal Range of Motion, Non-Tender, Pedal Edema Skin: Warm, Dry, Intact Neurological: No New Focal Deficit Psy/Mental Status: Alert, Normal Mood - Problem List & Annotations (1) Vacuum extraction, delivered, current hospitalization SNOMED Code(s): 259777743 Code(s): O66.5 - ATTEMPTED APPLICATION OF VACUUM EXTRACTOR AND FORCEPS Status: Acute Current Visit: Yes - Problem List Review Problem List Initiated/Reviewed/Updated: Yes - My Orders Last 24 Hours: My Active Orders 03/16/19 21:56 Resuscitation Status Routine 03/16/19 22:02 Notify Provider Vital Signs OB [RC] ASDIRECTED Up ad Carol [RC] ASDIRECTED Vital Signs [RC] PFP Acetaminophen [Tylenol] 650 mg PO Q6H PRN Benzocaine/Menthol [Dermoplast Pain Relief [place]] See Dose Instructions TOP Q4H PRN Carboprost Tromethamine [Hemabate DS] 250 mcg IM ASDIRECTED PRN Docusate Sodium [Colace] 100 mg PO BID PRN Ibuprofen [Motrin] 800 mg PO Q8H PRN Oxytocin [Pitocin] 10 unit IM ONETIME PRN Simethicone 80 mg PO Q4H PRN Sodium Chloride 0.9% [Saline Flush] 10 ml FLUSH ASDIRECTED PRN Tranexamic Acid [Cyklokapron] 1,000 mg Sodium Chloride 0.9% [Normal Saline] 100 ml IV ONETIME Zolpidem [Ambien] 5 mg PO BEDTIME PRN miSOPROStol [Cytotec] 800 mcg RECTAL ONETIME PRN Assess Lochia [WOMSER] Per Unit Routine Assess Uterine Involution [WOMSER] Per Unit Routine Breast Pump [WOMSER] Per Unit Routine Ice Therapy [OM.PC] Per Unit Routine Perineal Care [OM.PC] Per Unit Routine Saline Lock Insert [OM.PC] Urgent Sitz Bath [OM.PC] Per Unit Routine 03/17/19 09:00 Vit with Ca/FA/Iron [ Plus Iron] 1 each PO DAILY 03/18/19 06:00 CBC W/O DIFF,HEMOGRAM [HEME] Routine - Plan Plan:: Assessment: 1. 23 yo NA primigravida @ 41w2d -- S/P Vacuum assisted vaginal delivery of post term male . --Initiate routine cares, rooming in as much as possible for initiation of bonding and . -- Patient presented for induction due to post dates . Started with Cytotec as discussed, considered possible repeat Cytotec, AROM, Pitocin infusion, internal monitoring, etc as reviewed if needed for adequate labor pattern. 2. Blood type O+ 3. GBS positive with Amoxicillin allergy and resistance to Clindamycin -- Received 2 doses of Vancomycin for prophylaxis in labor 1g Q 12 hours. 4. Maternal anemia, improved. Hgb 11.9 on admit 5. Positive UDS on admit, does not match clinical hx, will get confirmatory testing. Also--known use of ranitidine for GERD, possible false positive -- Confirmatory test pending. 6. 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 Barboza as discussed. 8. GERD, on ranitidine and other OTC agents. 9. First trimester tobacco use. Plan: 1. Continue routine cares 2. 3. Encourage rooming in for and bonding. Patient was seen and evaluated today by myself and Dr. Nayeli Urena. Assessment and plan under advisement of Dr. Urena. -Nasra Maxwell, MS-III
[2019-03-17] MEDS: Acetaminophen 325 MG Tab PO PRN (23:00)
[2019-03-18] MEDS: Ibuprofen 800 MG Tab PO PRN (05:51)
[2019-03-18 07:40] VITALS: BP 118/75
[2019-03-18] MEDS: Docusate Sodium 100 MG Cap PO PRN (08:48)
[2019-03-18] MEDS: Acetaminophen 325 MG Tab PO PRN (08:48)
[2019-03-18] MEDS: Prenatal Multivitamin with Calcium/Folic Acid/Iron Tab PO SCH (08:48)
--- NOTE | 2019-03-18 14:31 | PCM.DCSUM1 ---
Discharge Summary - Hospital Course Free Text/Narrative:: This delightful 23yo NA at 41w2d was admitted as scheduled for induction with ripe cervix and reactive NST. had cytotec, AROM, Pitocin, intrathecal and internal monitors placed. she subsequently progressed to complete dilation and pushed until . vacuum placed with one push, delivering vertex JOHANNA with hand noted behind head. LGA male 9lb 10oz 4165g delivered to mom's abdomen for skin to skin contact and bonding/nursing. APGARs 8 & 9 perineum did not require sutures. placenta intact. mom and baby both did well. see notes for details. hmb HPI Initial Comments: see EPIC episodes, admit and delivery notes. Brief History: going well. course uneventful. voiding , stooling, eating and ambulating well. VSS, afebrile. ready for discharge PPD #2. hmb Diagnosis: Stroke: No - Discharge Data Discharge Date: 03/18/19 (DISCHARGE DAY) Discharge Disposition: Home, Self-Care 01 Condition: Good - Discharge Diagnosis/Problem(s) (1) Mother currently breast-feeding SNOMED Code(s): 962787979 ICD Code: [id number] - Status: Acute Current Visit: Yes (2) GBS (group B Streptococcus carrier), +RV culture, currently SNOMED Code(s): 0659145105766, 092785929, 9010983009358 ICD Code: O99.820 - STREPTOCOCCUS B CARRIER STATE COMPLICATING Status: Acute Current Visit: Yes (3) Blood type O+ SNOMED Code(s): 859775618 ICD Code: Z67.40 - TYPE O BLOOD, RH POSITIVE Status: Acute Current Visit : Yes (4) Rubella immune SNOMED Code(s): 038205345 ICD Code: Z78.9 - OTHER SPECIFIED HEALTH STATUS Status: Acute Current Visit: Yes (5) Anemia of mother, with delivery SNOMED Code(s): 106023583, 191855803 ICD Code: O99.02 - ANEMIA COMPLICATING CHILDBIRTH Status: Acute Current Visit: Yes - Patient Summary/Data Complications: none Consults: none Labs Pending at D/C: confirmatory UDS follow up testing Hospital Course: doing well. received vancomycin for GBS positive, no signs of infection/GBS usual course Afeb, VSS voiding, stooling, ambulating eating. - Patient Instructions Diet: Regular Diet as Tolerated Activity: As Tolerated Driving: Do Not Drive Showering/Bathing: May Shower Notify Provider of: Fever, Increased Pain, Swelling and Redness, Nausea and/or Vomiting - Discharge Plan *PRESCRIPTION DRUG MONITORING PROGRAM REVIEWED*: Not Applicable *COPY OF PRESCRIPTION DRUG MONITORING REPORT IN PATIENT [place]: Not Applicable Home Medications: Home Meds Ferrous Sulfate 325 mg PO DAILY 03/16/19 [History] Mv-Mn/Iron/FA/Herbal/Digestive [ One Tablet] 1 tab PO DAILY 03/16/19 [ History] Ranitidine HCl [Ranitidine] 150 mg PO DAILY 03/16/19 [History] Patient Handouts: Home Care Instructions for Mom, Vaginal Delivery, Care After - Discharge Summary/Plan Comment DC Time >30 min.: No Discharge Summary/Plan Comment: will follow up in the clinic for 6 week check with me PNV daily iron BID for 10.3 PP hgb ibuprofen prn will need to see Dr. Barboza after 6 week check for repeat colposcopy all questions answered. b - General Info Date of Service: 03/18/19 (Discharge Day) Admission Dx/Problem (Free Text: 23yo NA Primip admitted for induction of labor @ 41w2d GBS positive, will need vancomycin Functional Status: Reports: Pain Controlled, Tolerating Diet, Ambulating, Urinating - Review of Systems General: Reports: No Symptoms HEENT: Reports: No Symptoms Pulmonary: Reports: No Symptoms Cardiovascular: Reports: No Symptoms Gastrointestinal: Reports: No Symptoms Genitourinary: Reports: No Symptoms, Other (normal flow and sx. ) Musculoskeletal: Reports: No Symptoms Skin: Reports: No Symptoms Neurological: Reports: No Symptoms Psychiatric: Reports: No Symptoms - Patient Data Vitals - Most Recent: Last Vital Signs Temp 98.6 F 03/18/19 07:39 Pulse 105 H 03/18/19 07:39 Resp 16 03/18/19 07:39 BP 118/75 03/18/19 07:39 Pulse Ox 99 03/18/19 07:39 Weight - Most Recent: 269 lb Lab Results - Last 24 hrs: Laboratory Results - last 24 hr 03/18/19 Range/Units 06:23 WBC 13.8 H (5.0-10.0) 10^3/uL RBC 3.72 L (4.2-5.4) 10^6/uL Hgb 10.3 L D (12.0-16.0) g/dL Hct 31.5 L (37.0-47.0) % MCV 84.7 (80-100) fL MCH 27.7 (27.0-34.0) pg MCHC 32.7 L (33.0-35.0) g/dL Plt Count 295 (150-450) 10^3/uL Med Orders - Current: Current Medications Acetaminophen (Tylenol) 650 mg PO Q6H PRN PRN Reason: mild pain or fever Last Admin: 03/18/19 08:48 Dose: 650 mg Benzocaine/Menthol (Dermoplast Pain Relief [place]) 0 gm TOP Q4H PRN PRN Reason: Perineal comfort measures Carboprost Tromethamine (Hemabate Ds) 250 mcg IM ONETIME PRN PRN Reason: Bleeding Carboprost Tromethamine (Hemabate Ds) 250 mcg IM ASDIRECTED PRN PRN Reason: Excessive vaginal bleeding Docusate Sodium (Colace) 100 mg PO BID PRN PRN Reason: Constipation Last Admin: 03/18/19 08:48 Dose: 100 mg Lactated Ringer's (Ringers, Lactated) 1,000 mls @ 500 mls/hr IV ASDIRECTED ALFREDA Last Admin: 03/16/19 17:59 Dose: 125 mls/hr Oxytocin/Sodium Chloride (Pitocin In Ns 30 Unit/500 Ml) 30 unit in 500 mls @ 2 mls/hr IV TITRATE ALFREDA; Protocol Last Titration: 03/17/19 00:50 Dose: 0 mls/hr Tranexamic Acid 1,000 mg/ (Sodium Chloride) 110 mls @ 660 mls/hr IV ONETIME PRN PRN Reason: Bleeding Ibuprofen (Motrin) 800 mg PO Q8H PRN PRN Reason: Mild Pain or Fever Last Admin: 03/18/19 05:51 Dose: 800 mg Methylergonovine Maleate (Methergine) 0.2 mg IM Q4H PRN PRN Reason: Bleeding Misoprostol (Cytotec) 50 mcg VAG Q4H PRN PRN Reason: cervical ripening Last Admin: 03/16/19 09:08 Dose: 50 mcg Misoprostol (Cytotec) 800 mcg RECTAL ONETIME PRN PRN Reason: Hemorrhage Oxytocin (Pitocin) 10 unit IM ONETIME PRN PRN Reason: Bleeding Prenat Multivit/[place]/Iron/Folic Ac ( Plus Iron) 1 each PO DAILY [facility] Last Admin: 03/18/19 08:48 Dose: 1 each Simethicone (Simethicone) 80 mg PO Q4H PRN PRN Reason: Gas Sodium Chloride (Saline Flush) 10 ml FLUSH ASDIRECTED PRN PRN Reason: Keep Vein Open Sodium Chloride (Saline Flush) 10 ml FLUSH ASDIRECTED PRN PRN Reason: Keep Vein Open Zolpidem Tartrate (Ambien) 5 mg PO BEDTIME PRN PRN Reason: Insomnia Discontinued Medications Acetaminophen (Tylenol) 650 mg PO Q4HR PRN PRN Reason: Pain (mild 1-3)/ Fever Bupivacaine HCl/Dextrose (Marcaine 0.75% Spinal) Confirm Administered Dose 2 ml .ROUTE .STK-MED ONE Stop: 03/16/19 17:25 Last Admin: 03/16/19 18:23 Dose: Not Given Epinephrine HCl (Adrenalin) Confirm Administered Dose 1 mg .ROUTE .STK-MED ONE Stop: 03/16/19 17:20 Last Admin: 03/16/19 18:23 Dose: Not Given Fentanyl (Sublimaze) Confirm Administered Dose 100 mcg .ROUTE .STK-MED ONE Stop: 03/16/19 17:20 Last Admin: 03/16/19 18:23 Dose: Not Given Vancomycin HCl 1 gm/ Sodium (Chloride) 250 mls @ 167 mls/hr IV Q12H [facility] Last Admin: 03/16/19 19:24 Dose: 167 mls/hr Lidocaine HCl (Xylocaine-Mpf 1%) 30 ml INJECT ONETIME ONE Stop: 03/16/19 15:51 Last Admin: 03/17/19 01:53 Dose: Not Given Misoprostol (Cytotec) 800 mcg RECTAL ONETIME PRN PRN Reason: Bleeding Ondansetron HCl (Zofran) Confirm Administered Dose 4 mg .ROUTE .STK-MED ONE Stop: 03/16/19 17:05 Last Admin: 03/16/19 17:08 Dose: 4 mg Sufentanil Citrate (Sufenta) Confirm Administered Dose 50 mcg .ROUTE .STK-MED ONE Stop: 03/16/19 17:20 Last Admin: 03/16/19 18:23 Dose: Not Given - Exam General: Reports: Alert, Oriented HEENT: Reports: Pupils Equal, Pupils Reactive, EOMI, Mucous Membr. Moist/[place] Neck: Reports: Supple Lungs: Reports: Clear to Auscultation, Normal Respiratory Effort Cardiovascular: Reports: Regular Rate, Regular Rhythm GI/Abdominal Exam: Normal Bowel Sounds, Soft, Non-Tender, No Organomegaly, No Distention, No Abnormal Bruit, No Mass, Pelvis Stable (Female) Exam: Normal External Exam, Normal Speculum Exam, Normal Bimanual Exam Rectal (Female) Exam: Normal Exam, Normal Rectal Tone Back Exam: Reports: Normal Inspection, Full Range of Motion Extremities: Normal Inspection, Normal Range of Motion, Non-Tender, No Pedal Edema, Normal Capillary Refill Skin: Reports: Warm, Dry, Intact Wound/Incisions: Reports: Healing Well Neurological: Reports: No New Focal Deficit Psy/Mental Status: Reports: Alert, Normal Affect, Normal Mood
== END 2019-03-18 16:25 | disposition home or self-care (01) | DRG 807 ==
LOC: DL.OB 03-16 08:10 → OBSVTOIN 03-16 21:35 → EDSTATUS 04-05 15:31
PROVIDERS: ADMIT Family Medicine; ATTEND Family Medicine
PROC: 10D07Z6 Extraction of Products of Conception, Vacuum, Via Natural or Artificial Opening (ICD-10-PCS; principal; 2019-03-16)
PROC: 3E0P7VZ Introduction of Hormone into Female Reproductive, Via Natural or Artificial Opening (ICD-10-PCS; 2019-03-16)
PROC: 3E033VJ Introduction of Other Hormone into Peripheral Vein, Percutaneous Approach (ICD-10-PCS; 2019-03-16)
PROC: 10907ZC Drainage of Amniotic Fluid, Therapeutic from Products of Conception, Via Natural or Artificial Opening (ICD-10-PCS; 2019-03-16)
PROC: 4A1HXCZ Monitoring of Products of Conception, Cardiac Rate, External Approach (ICD-10-PCS; 2019-03-16)
PROC: 3E0R3BZ Introduction of Anesthetic Agent into Spinal Canal, Percutaneous Approach (ICD-10-PCS; 2019-03-16)
PROC: 00HU33Z Insertion of Infusion Device into Spinal Canal, Percutaneous Approach (ICD-10-PCS; 2019-03-16)
DX: O48.0 Post-term pregnancy (principal); O99.824 Streptococcus B carrier state complicating childbirth; O99.02 Anemia complicating childbirth; O99.62 Diseases of the digestive system complicating childbirth; K21.9 Gastro-esophageal reflux disease without esophagitis; O70.0 First degree perineal laceration during delivery; O77.0 Labor and delivery complicated by meconium in amniotic fluid; O36.63X0 Maternal care for excessive fetal growth, third trimester, not applicable or unspecified; Z3A.41 41 weeks gestation of pregnancy; Z37.0 Single live birth
CPT/HCPCS: 36415; 51701; 59409; 80305-QW; 85027; 86850; 86900; 86901; A9270-GY; G0480; J2405; J2590; J3370; J7050; J7120

== ENCOUNTER 2022-10-20 03:11 | Inpatient (IN) | payer MEDICAID ==
[2022-10-20] MEDS: Oxytocin/Normal Saline 30 UNIT/500 ML BAG IV SCH ×2 (03:45→05:50)
[2022-10-20] MEDS ORDERED: Simethicone 80 MG Tab.Chew PO PRN (03:53)
[2022-10-20] MEDS ORDERED: Witch Hazel Medicated Pads 100/Jar TOP PRN (03:53)
[2022-10-20] MEDS ORDERED: Benzocaine/Menthol 20%-0.5% Spray 78 GM Cannister TOP PRN (03:53)
[2022-10-20] MEDS ORDERED: Docusate Sodium 100 MG Cap PO PRN (03:53)
[2022-10-20] MEDS ORDERED: Misoprostol 400 MCG (4 X 100 MCG TAB) RECTAL PRN (03:53)
[2022-10-20] MEDS ORDERED: Acetaminophen 325 MG Tab PO PRN (03:53)
[2022-10-20] MEDS ORDERED: Sodium Chloride 0.9% 10 ML Syringe FLUSH PRN (03:53)
[2022-10-20] MEDS ORDERED: Lactated Ringers 1,000 ML IV SCH (05:30)
[2022-10-20] MEDS: Ferrous Sulfate 325 MG Tab PO SCH (10:44)
[2022-10-20] MEDS: Prenatal Multivitamin with Calcium/Folic Acid/Iron Tab PO SCH (10:44)
[2022-10-20] MEDS: Ibuprofen 800 MG Tab PO PRN (18:00)
[2022-10-20] MEDS ORDERED: Oxytocin 10 Units/1 ML SDV ONE (18:48)
[2022-10-20] MEDS ORDERED: EPINEPHrine 1 MG/ML SDV ONE (18:48)
[2022-10-20] MEDS ORDERED: Oxytocin/Normal Saline 30 UNIT/500 ML BAG ONE (18:49)
[2022-10-20] MEDS ORDERED: Dexmedetomidine 200 MCG/2 ML SDV ONE (18:49)
[2022-10-20] MEDS ORDERED: Methylergonovine 0.2 MG/1 ML Amp ONE (18:50)
[2022-10-20] MEDS ORDERED: Vasopressin 20 Units/1 ML MDV ONE (18:50)
[2022-10-21] MEDS: Prenatal Multivitamin with Calcium/Folic Acid/Iron Tab PO SCH ×2 (08:50→11:22)
[2022-10-21] MEDS: Ferrous Sulfate 325 MG Tab PO SCH (08:50)
[2022-10-21] MEDS: Ibuprofen 800 MG Tab PO PRN (08:51)
[2022-10-21 11:26] VITALS: BP 110/66; PULSE 91
== END 2022-10-21 15:00 | disposition home or self-care (01) | DRG 806 ==
LOC: DL.OBCHECK 03:11 → OBSVTOIN 03:35 → DL.OB 03:35
PROVIDERS: ADMIT Family Medicine; ATTEND Family Medicine
PROC: 10E0XZZ Delivery of Products of Conception, External Approach (ICD-10-PCS; principal; 2022-10-20)
DX: O99.02 Anemia complicating childbirth (principal); O99.324 Drug use complicating childbirth; Z37.0 Single live birth; O62.3 Precipitate labor; D64.9 Anemia, unspecified; Z20.822 Contact with and (suspected) exposure to COVID-19; F12.90 Cannabis use, unspecified, uncomplicated; Z88.1 Allergy status to other antibiotic agents; Z3A.38 38 weeks gestation of pregnancy; Z90.89 Acquired absence of other organs; Z79.899 Other long term (current) drug therapy
CPT/HCPCS: 36415; 59409; 85027; A9270-GY; J2590; J7120; U0002

== ENCOUNTER 2024-10-22 12:46 | Inpatient (IN) | payer MEDICAID ==
[2024-10-22] MEDS ORDERED: Tranexamic Acid 1,000 MG in Sodium Chloride 0.9% 100 ML IV PRN (18:00)
[2024-10-22] MEDS ORDERED: Methylergonovine 0.2 MG/1 ML Amp IM PRN (18:00)
[2024-10-22] MEDS ORDERED: Ondansetron 4 MG/2 ML SDV IVPUSH PRN (18:00)
[2024-10-22] MEDS ORDERED: Carboprost Tromethamine 250 MCG/1 ML Amp IM PRN (18:00)
[2024-10-22] MEDS ORDERED: Sodium Chloride 0.9% 10 ML Syringe FLUSH PRN (18:00)
[2024-10-22] MEDS ORDERED: fentaNYL 100 MCG/2 ML SDV IVPUSH PRN (18:00)
[2024-10-22] MEDS: Misoprostol 50 MCG (1/2 of 100 MCG) Tab PO SCH (20:47)
[2024-10-22 20:49] LABS: MEAN CORPUSCULAR HEMOGLOBIN 25.9 pg (27.0-34.0); MEAN CORPUSCULAR HGB CONC 32.4 g/dL (33.0-35.0); RED BLOOD CELL COUNT 4.25 10^6/uL (4.2-5.4)
[2024-10-22] MEDS: VANCOmycin 2 GM in Sodium Chloride 0.9% 500 ML IV ONE (20:58)
[2024-10-22 21:29] LABS: CREATININE 0.76 mg/dL (0.55-1.02); EST CRCL DRUG DOSING (CG) 87.94 mL/min
[2024-10-22 22:19] LABS: CREATININE,URINE RAND 114.05 mg/dL (No establ ref range); PROTEIN CREATININE RATIO,URINE 248.1 mg/g (<150.0); PROTEIN,URINE RANDOM 28.3 mg/dL (0.0-11.9)
[2024-10-22] MEDS: diphenhydrAMINE 50 MG/ML SDV IVPUSH ONE (22:58)
[2024-10-22] MEDS: Acetaminophen 325 MG Tab PO PRN (23:02)
[2024-10-23] MEDS: Misoprostol 25 MCG (1/4 of 100 MCG) Tab PO SCH (05:38)
[2024-10-23] MEDS ORDERED: VANCOmycin 1 GM in Sodium Chloride 0.9% 250 ML IV SCH (06:00)
[2024-10-23] MEDS: diphenhydrAMINE 50 MG/ML SDV IVPUSH SCH (08:35)
[2024-10-23] MEDS: Oxytocin/Normal Saline 30 UNIT/500 ML BAG IV SCH (08:44)
[2024-10-23] MEDS: Lactated Ringers 1,000 ML IV SCH (08:44)
[2024-10-23] MEDS: VANCOmycin 1 GM in Sodium Chloride 0.9% 250 ML IV SCH (08:58)
[2024-10-23] MEDS ORDERED: Misoprostol 100 MCG Tab RECTAL PRN (13:12)
[2024-10-23] MEDS ORDERED: Oxytocin 10 Units/1 ML SDV IM PRN (13:12)
[2024-10-23] MEDS ORDERED: Bisacodyl 10 MG Supp RECTAL PRN (13:12)
[2024-10-23] MEDS ORDERED: Carboprost Tromethamine 250 MCG/1 ML Amp IM PRN (13:12)
[2024-10-23] MEDS ORDERED: Sodium Chloride 0.9% 10 ML Syringe FLUSH PRN (13:12)
[2024-10-23] MEDS ORDERED: Tranexamic Acid 1,000 MG in Sodium Chloride 0.9% 100 ML IV PRN (13:12)
[2024-10-23] MEDS ORDERED: Simethicone 80 MG Tab.Chew PO PRN (13:12)
[2024-10-23] MEDS: Ibuprofen 800 MG Tab PO SCH ×2 (15:31→21:53)
[2024-10-23] MEDS: Docusate Sodium 100 MG Cap PO PRN (15:32)
[2024-10-23] MEDS: Benzocaine/Menthol 20%-0.5% Spray 78 GM Cannister TOP PRN (15:33)
[2024-10-23] MEDS: Lidocaine 1% 30 ML SDV INJECT ONE (17:15)
[2024-10-23] MEDS: Lactated Ringers 1,000 ML IV ONE (17:16)
[2024-10-24] MEDS: Acetaminophen 325 MG Tab PO PRN (04:46)
[2024-10-24] MEDS: Ferrous Sulfate 325 MG Tab PO SCH (08:18)
[2024-10-24] MEDS: Prenatal Multivitamin with Calcium/Folic Acid/Iron Tab PO SCH (08:18)
[2024-10-24] MEDS: Witch Hazel Medicated Pads 100/Jar TOP PRN (15:11)
[2024-10-24] MEDS: Measles, Mumps & Rubella Vaccine 0.5 ML SDV SUBCUT ONE (15:19)
[2024-10-24 17:53] VITALS: BP 130/77; PULSE 97
== END 2024-10-24 15:45 | disposition home or self-care (01) | DRG 807 ==
LOC: DL.OB 12:46 → EDSTATUS 15:29 → DL.OB 19:42 → OBSVTOIN 10-23 12:46
PROVIDERS: ADMIT Family Medicine; ATTEND Family Medicine
PROC: 10E0XZZ Delivery of Products of Conception, External Approach (ICD-10-PCS; principal; 2024-10-23)
PROC: 10907ZC Drainage of Amniotic Fluid, Therapeutic from Products of Conception, Via Natural or Artificial Opening (ICD-10-PCS; 2024-10-23)
PROC: 3E0DXGC Introduction of Other Therapeutic Substance into Mouth and Pharynx, External Approach (ICD-10-PCS; 2024-10-23)
DX: O13.4 Gestational [pregnancy-induced] hypertension without significant proteinuria, complicating childbirth (principal); Z37.0 Single live birth; O99.214 Obesity complicating childbirth; O99.824 Streptococcus B carrier state complicating childbirth; O99.02 Anemia complicating childbirth; Z3A.37 37 weeks gestation of pregnancy
CPT/HCPCS: 36415; 59409; 82565; 82570; 84156; 84450; 84460; 84520; 85027; 90471; 90707; A9270-GY; J1200; J2590; J7040; J7050; J7120